=== PATIENT | female | born 1970 | race Caucasian/White ===

== ENCOUNTER 2020-05-06 22:07 | Emergency (ER) | payer BC ==
[2020-05-06] MEDS ORDERED: IBUPROFEN 600 MG TABLET PO ONE (22:31)
--- NOTE | 2020-05-06 23:19 | RADIOLOGY REPORT (SQ) ---
EXAM DESCRIPTION: XR HAND 3 OR MORE VIEWS COMPLETED DATE/TME: 05/06/2020 00:00 CLINICAL HISTORY: 50 years Female, INJURY COMPARISON: None. Findings: Punctate debris or foreign body at the level of the left third middle phalanx. Bones, joints, and soft tissues of the LEFT XR HAND 3 OR MORE VIEWS appear otherwise unremarkable. IMPRESSION: Punctate debris/foreign bodies at the level of the left third middle phalanx.
--- NOTE | 2020-05-06 23:28 | ER Document Report ---
ED Medical Screen (RME) - General Chief Complaint: Finger Injury Stated Complaint: FINGER INJURY Time Seen by Provider: 05/06/20 22:28 Mode of Arrival: Ambulatory Information source: Patient Notes: 50-year-old female patient presents emergency department chief complaint of injury to her left third digit. Patient reports her finger was crushed between a boat and [place] dock. She had a ring on in the exact area where the finger was crushed. The ring was removed prior to arrival to the emergency department. She has cap refill less than 3 seconds, normal sensation distally, she can flex and extend the finger. There is damage to the skin circumferentially. I have greeted and performed a rapid initial assessment of this patient. A comprehensive ED assessment and evaluation of the patient, analysis of test results and completion of the medical decision making process will be conducted by additional ED providers. I have specifically instructed the patient or family members with the patient to immediately return to any nursing staff should anything change in the patient's condition or with their chief complaint. - Related Data Allergies/Adverse Reactions: No Known Allergies Allergy (Unverified 05/06/20 22:23) Physical Exam - Vital signs Vitals: Temp Pulse Resp BP Pulse Ox 98.7 F 95 20 134/94 H 95 05/06/20 22:12 05/06/20 22:12 05/06/20 22:12 05/06/20 22:12 05/06/20 22:12 Course - Vital Signs Vital signs: Temp Pulse Resp BP Pulse Ox 98.7 F 95 20 134/94 H 95 05/06/20 22:18 05/06/20 22:12 05/06/20 22:12 05/06/20 22:12 05/06/20 22:12
[2020-05-06] MEDS ORDERED: ACETAMINOPHEN 325 MG TABLET PO ONE (23:58)
[2020-05-07] MEDS ORDERED: DIPH/PERTUSS(ACELL)/TETANUS VAC/PF 0.5 ML SYR (>=10YO) IM ONE (00:07)
[2020-05-07] MEDS ORDERED: LIDOCAINE 2% INJ-PF (20 MG/ML) 10 ML AMPUL INFIL ONE (00:08)
--- NOTE | 2020-05-07 00:54 | ER Document Report ---
ED General - General Chief Complaint: Finger Injury Stated Complaint: FINGER INJURY Time Seen by Provider: 05/06/20 22:28 Mode of Arrival: Ambulatory - HPI Notes: Chief complaint: Crush injury left ring finger History of present illness: 50-year-old female sustained a crush injury to the ring finger of her nondominant left hand several hours ago when this was caught between a boat and a dock. Patient was wearing a ring at the time. She had a small amount of bleeding and is concerned she might have a broken bone. Patient has not had a tetanus booster within the last 5 years. - Related Data Allergies/Adverse Reactions: No Known Allergies Allergy (Unverified 05/06/20 22:23) Past Medical History - General Information source: Patient - Social History Smoking Status: Current Every Day Smoker Frequency of alcohol use: Rare Drug Abuse: None Lives with: Family Family History: Reviewed & Not Pertinent Patient has homicidal ideation: No - Past Medical History Cardiac Medical History: Reports: Hx Hypertension Neurological Medical History: Reports: Hx Migraine Past Surgical History: Reports: Hx Section Review of Systems - Review of Systems Notes: Constitutional: Negative for fever. HENT: Negative. Eyes: Negative. Cardiovascular: Negative. Respiratory: Negative. Gastrointestinal: Negative for nausea or vomiting. Genitourinary: Negative. Musculoskeletal: As per HPI. Skin: Negative. Neurological: Negative. 10 point ROS negative except as marked above and in HPI. Physical Exam - Vital signs Vitals: Temp Pulse Resp BP Pulse Ox 98.7 F 95 20 134/94 H 95 05/06/20 22:12 05/06/20 22:12 05/06/20 22:12 05/06/20 22:12 05/06/20 22:12 - Notes Notes: GENERAL: Middle-aged female appearing moderately uncomfortable. SKIN: Good turgor no rashes. HEAD: Normocephalic atraumatic. EYES: PERRLA. EOMI. CHEST: Respirations unlabored. Breath sounds clear and symmetrical. HEART: Regular rhythm. No murmur gallop or rub. EXTREMITIES: Left ring finger shows superficial skin tears and abrasions over the intermediate and distal phalanges. The nail is uninvolved. Distal sensation and capillary refill are normal. Range of motion of all joints is normal actively and passively. There is minimal venous oozing from the wounds. No calf tenderness. Cap refill less than 1.5 seconds. Dorsalis pedis and posterior tibial pulses 3+ and symmetrical. NEUROLOGICAL: Alert and oriented x3. Nonfocal. PSYCHIATRIC: Appropriate affect. Course - Re-evaluation Re-evalutation: 05/07/20 00:54 I have updated the patient's tetanus booster. The area was very tender to touch and I placed a digital block in order to afford the opportunity to provide adequate irrigation and full examination. She was irrigated with 2 L of sterile saline. Further inspection revealed no other abnormalities. Specifically there is nothing it needs to be sutured. We have applied bacitracin ointment and a Telfa dressing and immobilized the finger in a neutral position with a padded metal malleable splint. Patient is going to be started on oral antibiotics and ibuprofen at home and advised to follow-up with her primary care physician within the next 48 hours. I am also going to place her on oral Keflex. 05/07/20 00:56 - Vital Signs Vital signs: Temp Pulse Resp BP Pulse Ox 98.7 F 95 20 134/94 H 95 05/06/20 22:18 05/06/20 22:12 05/06/20 22:12 05/06/20 22:12 05/06/20 22:12 - Diagnostic Test Radiology reviewed: Reports reviewed - Per radiologist there is no fracture or dislocation of the left hand. There is some fine granular radiopaque material noted in the soft tissues at the site of the injury. Procedures - Immobilization Left Hand 4th digit Pre-Proc Neuro Vasc Exam: Normal Immobilizer type: Finger splint (Static) Performed by: ALEK Post-Proc Neuro Vasc Exam: Normal Discharge - Discharge Clinical Impression: Abrasion/contusion left ring finger Condition: Stable Disposition: HOME, SELF-CARE Additional Instructions: Leave the dressing and splint intact until you are rechecked by your personal physician within the next 48 hours. Take your home pain medication as needed. Elevate the hand and apply ice packs intermittently. Take the prescribed antibiotic. Return here immediately for new or worsening symptoms. Prescriptions: Cephalexin Monohydrate [Keflex 500 mg Capsule] 500 mg PO Q6H 5 Days capsule
[2020-05-07 01:38] VITALS: BP 118/76
== END 2020-05-07 01:20 | disposition home or self-care (01) ==
LOC: ER 22:07
DX: S60.415A Abrasion of left ring finger, initial encounter (principal); S60.042A Contusion of left ring finger without damage to nail, initial encounter; W23.0XXA Caught, crushed, jammed, or pinched between moving objects, initial encounter; Y93.89 Activity, other specified; Y92.89 Other specified places as the place of occurrence of the external cause; F17.200 Nicotine dependence, unspecified, uncomplicated; I10 Essential (primary) hypertension; Z23 Encounter for immunization
CPT/HCPCS: 99283; 90471; 73130; 90715; J3490